=== PATIENT | female | born 1955 | race Caucasian/White ===

== ENCOUNTER 2018-03-09 22:05 | Emergency (ER) | payer OTHER ==
[~2018-03-09] VITALS: Ht 167.6 cm; Wt 104.3 kg
[~2018-03-09 22:05] MED LIST: ACYCLOVIR 800800 M1 PO; CRESTOR10 MG PO; HYDROCHLOROTHIA25 M1 PO; HYDROXYCHLOROQ200 M1 PO; MOBIC15 MG PO; PRILOSEC40 MG PO; SULFASALAZINE500 M1 PO; SYNTHROID100 MCG PO; VICODIN
[2018-03-09] MEDS ORDERED: PRILOSEC 20 MG20 MG (22:23)
[2018-03-09] MEDS ORDERED: SYNTHROID175 MCG (22:23)
[2018-03-09] MEDS ORDERED: COZAAR 25 MG TA25 M1 (22:24)
[2018-03-09] MEDS ORDERED: PREDNISONE 5 MG5 M1 (22:24)
[2018-03-09] MEDS ORDERED: PROZAC20 MG (22:24)
[2018-03-09] MEDS ORDERED: TOPROL XL100 MG (22:25)
[2018-03-09] MEDS ORDERED: LASIX 20 MG TAB20 MG (22:25)
[2018-03-09] MEDS ORDERED: CRESTOR5 MG (22:25)
[2018-03-09] MEDS ORDERED: NABUMETONE 750750 M1 (22:26)
[2018-03-09] MEDS ORDERED: ENABLEX 7.5 MG7.5 M1 (22:26)
[2018-03-09] MEDS ORDERED: SULFASALAZINE500 M4 (22:26)
[2018-03-09] MEDS ORDERED: ORENCIA125 MG/1 M (22:27)
[2018-03-09] MEDS ORDERED: VOLTAREN GEL 1100 G2 (22:27)
[2018-03-09] MEDS ORDERED: ROBAXIN 750 MG750 M1 (22:28)
[2018-03-09] MEDS ORDERED: MAGOX 400400 MG (22:28)
[2018-03-09] MEDS ORDERED: FISH OIL 1,001000 M2 (22:29)
[2018-03-09] MEDS ORDERED: TUMERSAID TABL1 EACH (22:29)
[2018-03-09] MEDS ORDERED: UNICOMPLEX M TA1 TA1 (22:29)
[2018-03-09] MEDS ORDERED: TUSSIN CHE100 MG/5 M PO (23:12)
[2018-03-09] MEDS ORDERED: ZPAK PO (23:12)
[2018-03-09] MEDS ORDERED: VENTOLIN HFA 1818 GM INH (23:12)
[2018-03-09 23:20] VITALS: BP 147/87
== END 2018-03-09 23:20 | disposition home or self-care (01) ==
LOC: M.ERS 22:05
DX: J40 Bronchitis, not specified as acute or chronic (principal); I10 Essential (primary) hypertension; M19.90 Unspecified osteoarthritis, unspecified site; E78.5 Hyperlipidemia, unspecified; Z88.1 Allergy status to other antibiotic agents; Z88.8 Allergy status to other drugs, medicaments and biological substances; Z90.710 Acquired absence of both cervix and uterus

== ENCOUNTER 2018-08-31 19:07 | Emergency (ER) | payer OTHER ==
[~2018-08-31] VITALS: Ht 167.6 cm; Wt 67.1 kg
[~2018-08-31 19:07] MED LIST changes: +COZAAR 25 MG TA25 M1; +CRESTOR5 MG; +ENABLEX 7.5 MG7.5 M1; +FISH OIL 1,001000 M2; +LASIX 20 MG TAB20 MG; +MAGOX 400400 MG; +NABUMETONE 750750 M1; +ORENCIA125 MG/1 M; +PREDNISONE 5 MG5 M1; +PRILOSEC 20 MG20 MG; +PROZAC20 MG; +ROBAXIN 750 MG750 M1; +SULFASALAZINE500 M4; +SYNTHROID175 MCG; +TOPROL XL100 MG; +TUMERSAID TABL1 EACH; +TUSSIN CHE100 MG/5 M PO; +UNICOMPLEX M TA1 TA1; +VENTOLIN HFA 1818 GM INH; +VOLTAREN GEL 1100 G2; +ZPAK PO
[2018-08-31] MEDS ORDERED: CRESTOR5 MG PO (19:28)
[2018-08-31] MEDS ORDERED: AZULFIDINE500 M1 PO (19:28)
[2018-08-31] MEDS ORDERED: MYRBETRIQ50 MG PO (19:28)
[2018-08-31] MEDS ORDERED: ROBAXIN 750 MG750 M1 PO (19:29)
[2018-08-31] MEDS ORDERED: ORENCIA125 MG/1 M IM (19:29)
[2018-08-31] MEDS ORDERED: TYLENOL EXTRA500 MG PO (19:29)
[2018-08-31] MEDS ORDERED: TYLENOL PM EX-1 EACH PO (19:30)
[2018-08-31 19:57] VITALS: BP 178/63
== END 2018-08-31 19:58 | disposition home or self-care (01) ==
LOC: M.ERS 19:07
DX: S60.012A Contusion of left thumb without damage to nail, initial encounter (principal); I10 Essential (primary) hypertension; E78.5 Hyperlipidemia, unspecified; M19.90 Unspecified osteoarthritis, unspecified site; Z88.1 Allergy status to other antibiotic agents; Z88.6 Allergy status to analgesic agent; Z88.8 Allergy status to other drugs, medicaments and biological substances; Z98.890 Other specified postprocedural states; Z90.710 Acquired absence of both cervix and uterus; W01.0XXA Fall on same level from slipping, tripping and stumbling without subsequent striking against object, initial encounter; Y93.89 Activity, other specified; Y92.89 Other specified places as the place of occurrence of the external cause; Y99.8 Other external cause status